=== PATIENT | male | born 1955 | race Caucasian/White ===

== ENCOUNTER 2025-08-27 11:00 | Emergency (ER) | payer BC, MEDICARE ==
[2025-08-27] MEDS: Nystatin Topical Powder 15 GM Bottle TOP SCH (12:04)
== END 2025-08-27 12:46 | disposition home or self-care (01) ==
LOC: JD.ED 11:00
DX: L03.317 Cellulitis of buttock (principal); M25.561 Pain in right knee; I10 Essential (primary) hypertension; E78.00 Pure hypercholesterolemia, unspecified; J44.9 Chronic obstructive pulmonary disease, unspecified; Z79.01 Long term (current) use of anticoagulants; Z79.899 Other long term (current) drug therapy
CPT/HCPCS: 73562; 96372; 99283; A9270; J0696